=== PATIENT | female | born 1990 | race African-American/Black ===

== ENCOUNTER 2016-09-26 09:14 | Emergency (ER) | payer OTHER ==
[~2016-09-26 09:14] MED LIST: ACETAMINOPHEN500 M3 PO; CIPRO PO; EC-NAPROSYN375 MG PO; ERYTHROCIN INJ; FLAGYL PO; FOLIC ACID; IBUPROFEN600 MG PO; IRON1 TAB; LORTAB 5/500 TA1 TA2 PO; MACROBID100 MG PO; NAPROSYN500 MG PO; NAPROXEN; NO MEDICATIONS; PHENERGAN12.5 MG; PRENATAL VITAMI1 TA4 PO; PRENATAL1 TA1; PYRIDIUM PO; TYLENOL #3 PO; VIBRAMYCIN100 M1 DOB; ZOFRANODT PO
== END 2016-09-26 09:36 | disposition home or self-care (01) ==
LOC: SED 09:14
DX: G56.01 Carpal tunnel syndrome, right upper limb (principal); M25.531 Pain in right wrist; F17.210 Nicotine dependence, cigarettes, uncomplicated; D64.9 Anemia, unspecified
CPT/HCPCS: 99283

== ENCOUNTER 2016-11-13 09:50 | Emergency (ER) | payer OTHER ==
--- NOTE | ~2016-11-13 | CT105 ---
[facility] A Service of [facility] / [facility] RADIOLOGY TEXT RESULTS PATIENT: TANESHA HAMPTON LOCATION: SED : [birth year] UNIT #: [id number] AGE: [address]: Denny Wren MD SEX: F ORDER DR: [id number] [place] [id number] E MR#: [id number] #: [id number] NAME: TANESHA HAMPTON : 1990 SEX: F STUDY DATE/TIME: 11/13/2016 12:21 UNIT: SED ROOM: STUDY DESCRIPTION: CT Pelvis W Cont Attending Physician: Denny Wren M.D. Ordering Physician: Denny Wren M.D. Primary Care Physician: [facility] MEDICAL IMAGING REPORT This report is preliminary unless electronic signature is present. EXAM CT pelvis with IV contrast HISTORY Pain in right thigh and groin and muscle weakness for 3 days. No injury. TECHNIQUE This CT exam was performed with one or more of the following radiation dose reduction techniques: automatic exposure control, adjustment of mA and/or kV according to patient size, and iterative reconstruction. FINDINGS CT pelvis with IV contrast demonstrates no pelvic mass, loculated fluid collection or abnormal soft tissue enhancement. Small amount of free fluid in the pelvis and incidental small bilateral ovarian follicular cysts. IUD in satisfactory position. Normal appendix. Urinary bladder is normal. No bowel dilatation. No abnormal sclerosis. IMPRESSION 1. Normal examination. 2. Normal appendix. 3. IUD within the uterus. Incidental small ovarian follicular cysts and minimal free fluid in the pelvis. Dictated by... Michael Lopez M.D. THIS IS AN ELECTRONICALLY VERIFIED REPORT Michael Lopez M.D. at 11/13/2016 11:12 PM Annika TD: 11/13/2016 20:46 [facility] A Service [facility] RADIOLOGY TEXT RESULTS PATIENT: TANESHA HAMPTON LOCATION: SED : 90 UNIT #: [id number] AGE: [address]: Denny Wren MD SEX: F ORDER DR: JOB #: [id number] MEDICAL IMAGING REPORT Page 1 of 1
[2016-11-13] MEDS ORDERED: NO MEDICATIONS (09:57)
[2016-11-13 11:18] LABS: BASOPHIL# 0.1 X10e3 (0-0.3); BASOPHIL% 0.7 % (0-2.5); EOSINOPHIL# 0.1 X10e3 (0-0.7); EOSINOPHIL% 1.5 % (0.0-7.0); HEMATOCRIT 38.1 % (35.0-45.0); HEMOGLOBIN 12.5 gm/dL (12.0-16.0); LYMPHOCYTE# 2.2 X10e3 (1.0-3.5); LYMPHOCYTE% 31.9 % (17.0-45.0); MEAN CELL VOLUME 84.6 FL (83-96); MEAN CORPUSCULAR HEMOGLOBIN 27.7 PG (28-34); MEAN CORPUSCULAR HGB CONC 32.7 g/dL (30-36); MEAN PLATELET VOLUME 7.5 FL (6.5-11.5); MONOCYTE# 0.6 X10e3 (0-1.0); MONOCYTE% 8.9 % (3.0-12.0); NEUTROPHIL# 3.9 X10e3 (1.5-7.1); PLATELET COUNT 271 X10e3 (140-420); RED CELL DISTRIBUTION WIDTH 15.8 % (11.0-15.5); WHITE BLOOD COUNT 6.8 X10e3 (4.0-10.5)
[2016-11-13 11:20] LABS: DIFF IND NO
[2016-11-13 11:38] LABS: BUN/CREATININE RATIO 16.66; CREATININE SERUM 0.6 mg/dL (0.6-1.4); GLOM FILT RATE Estimated 145.8 mL/min (>60); POTASSIUM 4.3 mmol/L (3.5-5.1)
[2016-11-13 12:03] LABS: URINE SOURCE CLEAN CATCH
[2016-11-13 12:06] LABS: URINE APPEARANCE SL CLOUDY; URINE BILIRUBIN NEG (NEG); URINE BLOOD NEG (NEG); URINE COLOR YELLOW; URINE GLUCOSE NEG (NORM); URINE KETONE NEG (NEG); URINE LEUKOCYTE ESTERASE NEG (NEG); URINE NITRATE NEG (NEG); URINE PROTEIN NEG (NEG); URINE UROBILINOGEN 0.2 MG/DL (NORM)
[2016-11-13 12:08] LABS: MICRO INDICATED? NO
[2016-11-13 12:15] LABS: AMPHETAMINE NEG (NEG); BARBITURATES NEG (NEG); BENZODIAZEPINES NEG (NEG); COCAINE NEG (NEG); MARIJUANA POS (NEG); OPIATES NEG (NEG); TRICYCLIC ANTIDEPRESSANTS NEG (NEG); U METHADONE NEG (NEG)
== END 2016-11-13 15:19 | disposition home or self-care (01) ==
LOC: SED 09:50
PROVIDERS: Emergency Medicine
DX: S39.011A Strain of muscle, fascia and tendon of abdomen, initial encounter (principal); D64.9 Anemia, unspecified; F41.9 Anxiety disorder, unspecified; F17.200 Nicotine dependence, unspecified, uncomplicated; X58.XXXA Exposure to other specified factors, initial encounter
CPT/HCPCS: 72193; 80048; 80307; 81003; 84703; 85025; 96374; 96375; 99284; J1100; J1885; J2270; Q9967